=== PATIENT | female | born 1995 | race Caucasian/White ===

== ENCOUNTER 2018-07-31 22:20 | Emergency (ER) | payer BC ==
[~2018-07-31] VITALS: Ht 160 cm; Wt 81.6 kg
[2018-07-31 22:42] VITALS: BP 137/95
[2018-08-01] MEDS ORDERED: DexAMETHasone SOD PHOS 10MG/1ML VIAL INJ IM ONE (01:00)
[2018-08-01] MEDS ORDERED: EPINEPHrine HCL 0.5 ML NEB NEB ONE (01:00)
== END 2018-08-01 01:44 | disposition home or self-care (01) ==
LOC: ER 22:24
DX: J45.909 Unspecified asthma, uncomplicated (principal); M79.7 Fibromyalgia
CPT/HCPCS: 81025; 94640; 96372; 99283; J1100